=== PATIENT | male | born 1985 | race American Indian/Alaskan Native ===

== ENCOUNTER 2019-09-06 23:50 | Emergency (ER) | payer SELFPAY ==
[2019-09-07 00:37] VITALS: BP 136/80
--- NOTE | 2019-09-07 01:35 | Cat Scan Report ---
Head CT without intravenous contrast INDICATION: Closed head trauma today COMPARISON: None FINDINGS: The ventricles are normal in size and position. No hemorrhage or extra-axial fluid collecti on. No edema or mass effect. No focal infarct seen. Portions of the sinuses visualized are clear. No skull fracture identified. IMPRESSION: Negative head CT Automated exposure control was utilized to diminish radiation dose Signer Name: Angel Lema MD Signed: 09/07/2019 1:30 AM Workstation Name: [id number]
--- NOTE | 2019-09-07 01:40 | Cat Scan Report ---
CT of the facial bones INDICATION: Blunt trauma today FINDINGS: The sinuses are clear with no opacification or air-fluid levels. The zygomatic arches are i ntact. Mastoid air cells are well aerated. No orbital floor or roof fracture. The nasal bone is intac t. Septum is in the midline. No intraorbital abnormality. There is no definite soft tissue swelling s een. IMPRESSION: Negative study. No fracture seen. All CT scans at this location are performed using CT dose reduction for ALARA by means of automated e xposure control Signer Name: Angel Lema MD Signed: 09/07/2019 1:36 AM Workstation Name: [id number]
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
== END 2019-09-07 06:42 | disposition home or self-care (01) ==
LOC: ED 23:50
DX: S01.412A Laceration without foreign body of left cheek and temporomandibular area, initial encounter (principal); K03.81 Cracked tooth; W22.8XXA Striking against or struck by other objects, initial encounter; Y93.89 Activity, other specified; Y92.89 Other specified places as the place of occurrence of the external cause; Y99.8 Other external cause status
CPT/HCPCS: 70450; 70486